=== PATIENT | male | born 1965 | race Caucasian/White ===

== ENCOUNTER → 2021-04-06 | Outpatient (CLI) | payer SELFPAY ==
--- NOTE | 2021-04-06 14:56 | KCIC ---
Right lower extremity venous duplex study 04/06/2021 2:53 PM Clinical History: Follow-up, right lower extremity DVT Technique: Using a combination of real time ultrasound imaging and color-flow and pulse Doppler imagi ng techniques, including spectral analysis, graded compression and augmentation, duplex evaluation of the deep venous system of the right lower extremity was performed. Multiple images were obtained. Findings: There is no sonographic evidence of deep venous thrombosis involving the visualized deep ve nous structures of the right lower extremity Impression: No evidence of deep venous thrombosis involving the right lower extremity Electronically signed by: Jere Fregoso MD (04/06/2021 2:53 PM) [id number]
== END ==
LOC: KCIC US 13:06
PROVIDERS: ATTEND Family Medicine
DX: I82.A11 Acute embolism and thrombosis of right axillary vein (principal)
CPT/HCPCS: 93971